=== PATIENT | male | born 1965 | race Caucasian/White ===

== ENCOUNTER 2018-01-30 08:08 | Emergency (ER) | payer BC ==
[~2018-01-30] VITALS: Ht 180.3 cm; Wt 87.9 kg
[~2018-01-30 08:08] MED LIST: CLXOPS3 OP; LRT5 PO
[2018-01-30 08:10] VITALS: Ht 180.3 cm; Wt 87.9 kg
[2018-01-30] MEDS ORDERED: KETOROLAC TROMETHAMINE 60 MG/2 ML VIAL IM STA (08:50)
[2018-01-30] MEDS ORDERED: DEXAMETHASONE **PF** INJ 10 MG/ML VIAL IM ONE (09:00)
--- NOTE | 2018-01-30 09:17 | DIAGNOSTIC IMAGING REPORT ---
LUMBAR SPINE 5 VIEWS HISTORY: LOW BACK PAIN INTO R LEG X 4 DAYS COMPARISON: None. FINDINGS: There is no fracture. No subluxation. The sacrum is intact. Mild osteoarthritis within the bilateral hips. Minimal dextroscoliosis of the lumbar spine. Mild facet osteoarthritis throughout the lumbar spine. Moderate to space narrowing at L3-L4. Mild disc space narrowing at L4-L5. There are endplate osteophytes from L3 through L5. IMPRESSION: No fracture or subluxation within the lumbar spine. Degenerative changes as described above. Electronically signed by: Chase Martinez M.D. 01/30/2018 9:16 AM Dictated Date/Time: 01/30/2018 9:14 AM
[2018-01-30] MEDS ORDERED: METH4PAK PO (09:49)
[2018-01-30] MEDS ORDERED: CYCL10TA6 PO (09:49)
[2018-01-30] MEDS ORDERED: ACYC400T PO (09:49)
[2018-01-30] MEDS ORDERED: OXYC1TAB3 PO (09:49)
--- NOTE | 2018-01-30 09:51 | EMERGENCY ROOM VISIT NOTE ---
ED Visit Note First contact with patient: 08:15 CHIEF COMPLAINT: Right low back pain radiating into the right leg 5 days HISTORY OF PRESENT ILLNESS: Patient is an otherwise healthy 52-year-old male who presents emergency department accompanied by his for evaluation of right low back pain radiating into the right leg. His symptoms started about 5 days ago. He has a history of mild chronic low back pain for which he has been seen by his chiropractor monthly for 20 years. 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 Otherwise he specifically denies any known injury to his back, no falls or direct trauma. He complains of a burning, sharp pain in the right low back that radiates into the right hip and groin and down his right leg. Pain is worse with walking and standing and weightbearing on the right. He has better with his weight on his left. He has tried taking ibuprofen with minimal relief. He denies any numbness, tingling or weakness into the lower extremities. No bowel or bladder incontinence. REVIEW OF SYSTEMS: Review of systems as per HPI. All other systems reviewed were negative. 10 systems reviewed. PMH: Electronic medical records are reviewed and summarized as above/below. See Problem List. SOCIAL HISTORY: Patient lives at home with his spouse. Employed. Non-smoker. PHYSICAL EXAM: Vital Signs: Reviewed Nurse's notes. CONSTITUTIONAL: Patient is an uncomfortable appearing 52-year-old white male who is awake and alert and seated upright on the gurney leaning on his left side. He has some mild discomfort with position changes. NECK: No bruits auscultated. Supple without lymphadenopathy. No thyromegaly. No meningeal signs. Full active range of motion without discomfort. CARDIOVASCULAR: Regular rate and rhythm, with normal S1 and S2, no murmur or gallop or rub is heard. No carotid bruits auscultated. No JVD. Peripheral pulses easily palpable. RESPIRATORY: Breath sounds equal and clear to auscultation without wheezes, rales, or rhonchi heard. Full and equal chest expansion without accessory muscle use or retractions. ABDOMEN: Bowel sounds are present. Abdomen is soft, nontender and nondistended. INTEGUMENTARY: No lesions or rash, normal skin turgor. LYMPH: No lymphadenopathy. SPINE: Examination of the patient's back does not demonstrate any ecchymosis, abrasions or outward signs of trauma. No erythema, increased warmth or induration. Patient has no midline discomfort to palpation over the lumbar spinous processes. He has tenderness in the right paraspinous muscle distribution, extending into the erector muscles over the posterior pelvis. There is no pain over the SI joint or the sciatic notch. He has increased pain with range of motion including rotation and flexion, however range of motion is full.. EXTREMITIES: Leg lengths are symmetrical. Negative logroll bilaterally. Normal strength including dorsi-flexion and plantar flexion of the great toes and ankles and flexion and extension of the knees and flexion of the hips. Positive right straight leg raise testing, negative left straight raise testing. Lower extremity DTRs are equal and symmetrical bilaterally. Distal pulses are easily palpable. Sensation light touch is intact over the lower extremities bilaterally. EMERGENCY DEPARTMENT COURSE: The patient was seen and assessed as above. His old records were reviewed. He was medicated with Toradol 60 mg and Decadron 10 mg IM. Lumbar spine x-rays were obtained. Mild degenerative changes were noted throughout the lower lumbar spine. X-ray findings were reviewed with the patient and his . Supportive care measures were discussed. He will be placed on a steroid taper, and use of Flexeril and oxycodone for pain management was discussed. He was educated on the worrisome signs or symptoms for which she should return to the emergency department and was otherwise advised to follow-up with his primary care provider for further care and evaluation, particularly if his symptoms do not improve. Patient rated his pain a 7/10 at discharge. MEDICAL DECISION MAKING: I do not suspect acute compression syndrome, cauda equina, diskitis, epidural abscess, hematoma or neurovascular compromise. Medication reconciliation: I attest that I have personally reviewed the patient' s current medication list. Blood pressure screening : Patient was found to have normal blood pressure on screening and does not require follow-up. Patient was reviewed in the [facility] Prescription Drug Monitoring Program, and there were no red flags noted. LUMBAR SPINE 5 VIEWS HISTORY: LOW BACK PAIN INTO R LEG X 4 DAYS COMPARISON: None. FINDINGS: There is no fracture. No subluxation. The sacrum is intact. Mild osteoarthritis within the bilateral hips. Minimal dextroscoliosis of the lumbar spine. Mild facet osteoarthritis throughout the lumbar spine. Moderate to space narrowing at L3-L4. Mild disc space narrowing at L4-L5. There are endplate osteophytes from L3 through L5. IMPRESSION: No fracture or subluxation within the lumbar spine. Degenerative changes as described above. Current/Historical Medications Scheduled Acyclovir (Acyclovir), 1 TAB PO TID Ciprofloxacin Hcl 0.3% Oph (Ciloxan Oph *), 2 DROPS OP Q2HR Hydrocodone/Acetaminophen 5MG/500MG (Vicodin 5MG/500MG), 1-2 TAB PO Q4-6HR Methylprednisolone (Medrol Dosepak), 0 PO DAILY Scheduled PRN Cyclobenzaprine Hcl (Flexeril), 10 MG PO TID PRN for Muscle Spasms Oxycodone Immediate Rel Tab (Roxicodone Ir), 1-2 TAB PO Q4H PRN for Severe Pain Miscellaneous Medications None (Patient States No Home Meds) Allergies Uncoded Allergies: N (Allergy, Unknown, 11/20/02) PCN (Allergy, Unknown, 11/20/02) PEANUTS (Allergy, Unknown, 11/20/02) Vital Signs Date Time Temp Pulse Resp B/P (MAP) Pulse Ox O2 Delivery O2 Flow Rate FiO2 01/30/18 09:58 36.8 61 18 125/84 100 01/30/18 08:10 36.8 65 18 131/76 99 Room Air Medications Administered Medications (Trade) Dose Ordered Sig/Son Route Start Time Stop Time Status Last Admin Dose Admin Ketorolac Tromethamine (Toradol Inj) 60 mg NOW STAT IM 01/30/18 08:50 01/30/18 08:52 DC 01/30/18 09:07 60 MG Dexamethasone Sodium Phosphate (Dexamethasone Inj Pf) 10 mg NOW ONCE IM 01/30/18 09:00 01/30/18 09:01 DC 01/30/18 09:07 10 MG Departure Information Impression Primary Impression: Low back pain radiating to right lower extremity Prescriptions Acyclovir (ACYCLOVIR) 400 Mg Tab 1 TAB PO TID for 7 Days, #21 TAB Prov: Krista Yarbrough,SHIVAM 01/30/18 Oxycodone Immediate Rel Tab (ROXICODONE IR) 5 Mg Tab 1-2 TAB PO Q4H Y for Severe Pain, #30 TAB For Initial Treatment Prov: Krista Yarbrough PA 01/30/18 Cyclobenzaprine Hcl (FLEXERIL) 10 Mg Tab 10 MG PO TID Y for Muscle Spasms, #30 TAB Prov: Krista Yarbrough PA 01/30/18 Methylprednisolone (MEDROL DOSEPAK) 4 Mg [place] 0 PO DAILY, #1 PKT ONCE DAILY DIRECTED. Prov: Krista Yarbrough PA 01/30/18 Referrals David Bridges M.D. (PCP) Patient Instructions My [facility] Additional Instructions Medrol Dosepak : Once daily until the prescription is finished. It is best to take this earlier in the day as some patients note occasional difficulty falling asleep when taken in the late evening. Oxycodone (OxyIR) 5mg: Take 1-2 pills every four hours for breakthrough pain. Avoid alcohol, operating machinery or dangerous equipment, working on ladders or roofs, DRIVING, or situations where being under the influence may be dangerous. It is recommended to use an [id number] stool softener such as Colace, 100mg twice daily while taking this medication to avoid constipation. Cyclobenzaprine (Flexeril) 10 mg: Take 1 pills 3 times daily as needed for muscle spasms.. Avoid alcohol, operating machinery or dangerous equipment, working on ladders or roofs, DRIVING, or situations where being under the influence may be dangerous. Ibuprofen(Motrin, Advil) may be used for fever or pain. Use 600mg every six hours as needed. Take with food. Avoid using more than 2400mg in a 24 hour period. Do not use 2400mg per day for more than three consecutive days without physician direction. Prolonged inappropriate use can lead to stomach upset or ulcers. This medication can be taken if you need to drive, work, or perform activities which may be dangerous when taking narcotic pain medication. (AND/OR) Acetaminophen(Tylenol) may be used for fever or pain. Use 1000mg every six hours as needed. Avoid using more than 3000mg in a 24 hour period. This medication can be taken if you need to drive, work, or perform activities which may be dangerous when taking narcotic pain medication. Rest and avoid heavy lifting until your symptoms resolve and then gradually return to full activity. A good rule of thumb is if it hurts your back to perform a certain activity, then it should be avoided until you are healthy again. A heating pad, warm compresses, or a hot shower may help with tight muscles and can be done several times a day as needed. Continue current medications. Return to the ER immediately for any numbness, tingling, severe pain, loss of control of your bowels or bladder, inability to walk, or as needed. Follow up with your primary care physician within 3-5 days for a recheck of your current condition.
[2018-01-30 09:58] VITALS: BP 125/84; PULSE 61; TEMP 36.8; O2SAT 100
== END 2018-01-30 09:59 | disposition home or self-care (01) ==
LOC: C.EDB 08:10 → C.EDA 09:59
DX: M54.5 Low back pain (principal); M79.604 Pain in right leg; G89.29 Other chronic pain; Z88.0 Allergy status to penicillin; Z91.010 Allergy to peanuts

== ENCOUNTER 2024-04-14 14:53 | Observation (INO) ==
[2024-04-14 16:12] LABS: Appearance Urine Clear (Clear); Bilirubin Urine Negative (Negative); Blood Urine Negative (Negative); Color Urine Yellow; Glucose Urine UA Negative (Negative); Ketones Urine Negative (Negative); Leukocyte Esterase Urine Negative (Negative); Nitrite Urine Negative (Negative); Protein Urine Negative (Negative); Specific Gravity Urine 1.007 (1.000-1.030); Urobilinogen Urine Negative (Negative)
--- NOTE | 2024-04-14 16:18 | Emergency Department Note ---
History of Present Illness General Chief complaint: Back Injury/Pain Stated complaint: LOW BACK PAIN Time Seen by Provider: 04/14/24 16:03 History of Present Illness Maximum Pain Intensity: 10 NAME: CHANDNI BILLINGS AGE: 58 SEX: M : 1965 ARRIVES VIA: Walk-In INFORMANT: Patient ED PROVIDER(S): JESSE Morelos, Mason Alatorre MD The patient is a 58-year-old male who arrives to the emergency department for evaluation of pain in his right back starting last Sunday. He reports he was evaluated here in the emergency department, had x-ray imaging performed. He reports he was provided p.o. steroids, oral oxycodone, as well as muscle relaxers. He reports since that time he has been unable to stand. He reports the pain radiates from his right back down into his right Moore, denies any lateral right leg, to the ankle. He reports slight weakness in the right leg, however he believes this is from pain. He denies any numbness or tingling, loss of bowel or bladder.. Home Medications Medication Instructions Recorded Confirmed Type cyclobenzaprine 5 mg tablet 5 mg PO BID PRN muscle spasm #14 04/15/24 Rx tabs prednisone 20 mg tablet 60 mg (3 x 20 mg) PO DAILY #12 tabs 04/15/24 Rx Allergies Allergy/AdvReac Type Severity Reaction Status Date / Time peanut Allergy Unknown Unknown Verified 04/14/24 22:19 Penicillins Allergy Unknown Unknown Verified 04/14/24 22:19 Past Med/Surg History Problem List (Updated 04/17/24 @ 08:20 by JESSE Christiansen) Ambulatory dysfunction (Acute) Intractable low back pain (Acute) Sciatica (Acute) Lumbar back pain (Acute) No known health problems Social History Smoking Status: Never smoker Second Hand Exposure: No; Do You Dip or Chew Tobacco: No; Tobacco Cessation Education Requested by Patient: No Hx Alcohol Use: Yes Alcohol type: beer Hx Substance Use: No Preferred Language: Turkish Communication Ability: Effective Research Environmental Scientist Required: No Beliefs That Will Affect Care: None Current Living Situation: Spouse Other Information That Helps Us Care for You: No Feels Safe at Home: Yes Safety Concerns: Feels Safe At This Time Assistive Devices: Glasses Physical Exam Vital Signs Vital Signs - 24 hr 04/14/24 15:15 Temperature 36.8 C Temperature Source Temporal Artery Scan Pulse Rate 74 Pulse Rhythm Regular Respiratory Rate 20 Respiratory Effort / Characteristics Non-Labored Spontaneous Respiratory Depth Normal Blood Pressure 135/90 Blood Pressure Mean 105 Pulse Oximetry 97 Oxygen Delivery Method Room Air Sepsis Recent Fever Within 48 Hours No Sepsis New/Unexplained Change in Mental Status No Sepsis Action Taken by Nursing No Action Required VITALS: Vitals are noted on the nurse's note and reviewed by myself. Vital signs stable. GENERAL: 58-year-old male, in no acute distress, nondiaphoretic, well-developed well-nourished. SKIN: The skin was without rashes, erythema, edema, or bruising. HEAD: Normocephalic atraumatic. NECK: Supple without nuchal rigidity. No lymphadenopathy. No thyromegaly. Cervical spine is nontender. No JVD. HEART: Regular rate and rhythm without murmurs gallops or rubs. LUNGS: Clear to auscultation bilaterally without wheezes, rales or rhonchi. No retractions or accessory muscle use. ABDOMEN: Positive bowel sounds x 4. Soft, nontender, without masses or organomegaly. Rodriguez sign negative. No guarding or rebound tenderness. MUSCULOSKELETAL: No muscle atrophy, erythema, or edema noted. Right lumbar paraspinal region tenderness to palpation, limited range of motion, right hip due to pain, positive straight leg raise, strength 5/5, bilateral sensation intact. NEURO: Patient was alert and oriented to person place and time. No focal neurological deficits. Course Administered Medications Discontinued Medications Acetaminophen (Acetaminophen 500 Mg Tab) 1,000 mg PO NOW STA Stop: 04/14/24 18:15 Last Admin: 04/14/24 18:23 Dose: 1,000 mg Documented By: WINIFRED Acetaminophen (Acetaminophen 500 Mg Tab) 1,000 mg PO Q8H [facility] Stop: 05/15/24 01:59 Last Admin: 04/15/24 10:08 Dose: 1,000 mg Documented By: Admin: 04/15/24 03:19 Dose: 1,000 mg Documented By: JESSICA Ketorolac Tromethamine (Ketorolac Tromethamine 15 Mg/Ml Vial) 15 mg IV NOW ONE Stop: 04/14/24 18:15 Last Admin: 04/14/24 18:23 Dose: 15 mg Documented By: WINIFRED Ketorolac Tromethamine (Ketorolac Tromethamine 15 Mg/Ml Vial) 15 mg IV NOW ONE Stop: 04/14/24 20:17 Last Admin: 04/15/24 05:13 Dose: Not Given Documented By: JESSICA Ketorolac Tromethamine (Ketorolac Tromethamine 15 Mg/Ml Vial) 15 mg IV Q6H PRN PRN Reason: Pain Stop: 04/20/24 01:59 Last Admin: 04/15/24 05:33 Dose: 15 mg Documented By: JESSICA Lidocaine (Lidocaine 5% 1 Patch) 1 patch TD NOW STA Stop: 04/14/24 18:15 Last Admin: 04/14/24 18:23 Dose: 1 patch Documented By: WINIFRED Joseph (Remove Lidoderm Patch) 1 each N/A DAILY@2100 [facility] Stop: 05/14/24 20:59 Last Admin: 04/14/24 20:41 Dose: Not Given Documented By: LYNDSAY Joseph (Remove Lidoderm Patch) 1 each N/A TODAY@0630 ONE Stop: 04/15/24 06:31 Last Admin: 04/15/24 05:31 Dose: 1 each Documented By: JESSICA Oxycodone HCl (Oxycodone Hcl Ir 5 Mg Tab (Immediate Release)) 5 mg PO NOW STA Stop: 04/14/24 19:13 Last Admin: 04/14/24 19:23 Dose: 5 mg Documented By: LYNDSAY Prednisone (Prednisone 20 Mg Tab) 60 mg PO DAILY [facility] Stop: 04/16/24 09:01 Last Admin: 04/15/24 07:40 Dose: 60 mg Documented By: Admin: 04/14/24 22:34 Dose: 60 mg Documented By: JESSICA Medical Decision Making Differential Diagnosis Musculoskeletal, disc herniation, fracture, metastatic disease, cord compression, discitis, sciatica, cauda equina, infection, aortic disease, renal colic, gastrointestinal, as well as other pathologies. Medical Records Attestation: I reviewed the patient's medical records. Home Medications Current Medication List: was personally reviewed by me Laboratory Data Attestation: I reviewed the patient's lab results. No leukocytosis, stable hemoglobin and hematocrit, no electrolyte abnormalities, urinalysis negative for infection. 04/14/24 15:19 04/14/24 15:19 Lab Results 04/14/24 04/14/24 Range/Units 15:19 15:58 WBC 10.76 (4.8-10.8) K/ul RBC 5.51 (4.70-6.10) M/uL Hgb 16.3 (14.0-18.0) g/dl Hct 49.3 (42.0-52.0) % MCV 89.5 (80.0-100.0) fL MCH 29.6 (25.0-34.0) pg MCHC 33.1 (32.0-36.0) g/dL RDW Std Deviation 42.5 (36.4-46.3) fL RDW Coeff of Vivian 13.0 (11.5-14.5) % Plt Count 270 (130-400) K/uL MPV 9.4 (9.4-12.4) fL Immature Gran % (Auto) 0.6 % Neut % (Auto) 72.0 % Lymph % (Auto) 17.5 % [place] % (Auto) 8.6 % Eos % (Auto) 0.8 % Baso % (Auto) 0.5 % Neut # (Auto) 7.75 H (1.40-6.50) K/uL Lymph # (Auto) 1.88 (1.20-3.40) K/uL [place] # (Auto) 0.93 H (0.11-0.59) K/uL Eos # (Auto) 0.09 (0.00-0.50) K/uL Baso # (Auto) 0.05 (0.00-0.20) K/uL Immature Gran # (Auto) 0.06 (0.01-0.20) K/uL Sodium 138 (136-145) mmol/L Potassium 4.4 (3.5-5.1) mmol/L Chloride 100 (98-107) mmol/L Carbon Dioxide 30 (21-32) mmol/L Anion Gap 8 (3-11) BUN 16 (6-23) mg/dl Creatinine 1.07 (0.6-1.4) mg/dl Est Cr Clr Drug Dosing Not Reportable Est GFR ( Amer) 88.2 ml/min Est GFR (Non-Af Amer) 76.1 ml/min BUN/Creatinine Ratio 15.0 (10-20) Glucose 85 (70-99(Fasting)) mg/dl Calcium 9.9 (8.6-10.3) mg/dl Total Bilirubin 0.5 (0.2-1.0) mg/dl AST 21 (13-39) U/L ALT 27 (7-52) U/L Alkaline Phosphatase 48 (34-104) U/L Total Protein 7.8 (6.0-8.3) gm/dl Albumin 4.6 (3.4-5.0) gm/dl Globulin 3.2 (2.5-4.0) gm/dl Albumin/Globulin Ratio 1.4 (0.9-2) Urine Color Yellow Urine Appearance Clear (Clear) Urine pH 6.0 (4.5-7.5) Ur Specific [place] 1.007 (1.000-1.030) Urine Protein Negative (Negative) Urine Glucose (UA) Negative (Negative) Urine Ketones Negative (Negative) Urine Blood Negative (Negative) Urine Nitrite Negative (Negative) Urine Bilirubin Negative (Negative) Urine Urobilinogen Negative (Negative) Ur Leukocyte Esterase Negative (Negative) Blood Pressure Blood Pressure Findings: Normal blood pressure MDM Narrative Patient is a pleasant well-appearing 58-year-old male who arrives to the emergency department for evaluation of the above-stated complaint. Upon examination the patient was in the ED waiting area, in a wheelchair due to high census. He was seen in the previous week, for similar symptoms and provided oral oxycodone, prednisone, and muscle relaxers on an outpatient basis. He reports over the last week the pain has increased significantly, and he is unable to ambulate at this time. CT imaging of the lumbar spine was obtained which showed multilevel degenerative changes as described above most pronounced at the L3-L4 level. A saline lock was established, CBC, CMP, urinalysis were obtained, which were all unremarkable. The patient is showing no signs of cauda equina therefore no MRI imaging was obtained. The patient's pain was controlled in the emergency department with medication. I spoke with the admitting provider who agreed to accept the patient for ambulatory dysfunction. Please refer to their documentation for further patient care. Impression & Plan Sciatica, Lumbar back pain, Intractable low back pain, Ambulatory dysfunction Discharge Plan Visit Data Chief Complaint: Back Injury/Pain Stated Complaint: LOW BACK PAIN ED Provider: Mason Alatorre ED Midlevel Provider: Khushboo Rodarte Discharge Problem: Sciatica, Lumbar back pain, Intractable low back pain, Ambulatory dysfunction Patient Disposition: Admitted As Inpatient Discharge Instructions Interventions: ED Discharge Assessment Last Done: 04/14/24 21:27 Discharge Problem: Sciatica Qualifiers: Laterality: right Qualified Code(s): M54.31 - Sciatica, right side
[2024-04-14 16:28] LABS: Basophils # (auto) 0.05 K/uL (0.00-0.20); Basophils % (auto) 0.5 %; Eosinophils # (auto) 0.09 K/uL (0.00-0.50); Eosinophils % (auto) 0.8 %; Hematocrit (blood only) 49.3 % (42.0-52.0); Hemoglobin 16.3 g/dl (14.0-18.0); Immature Granulocytes # (auto) 0.06 K/uL (0.01-0.20); Immature Granulocytes % (auto) 0.6 %; Lymphocytes # (auto) 1.88 K/uL (1.20-3.40); Lymphocytes % (auto) 17.5 %; Mean Corpuscular Hemoglobin 29.6 pg (25.0-34.0); Mean Corpuscular Hgb Conc 33.1 g/dL (32.0-36.0); Mean Corpuscular Volume 89.5 fL (80.0-100.0); Mean Platelet Volume 9.4 fL (9.4-12.4); Monocytes # (auto) 0.93 K/uL (0.11-0.59); Monocytes % (auto) 8.6 %; Neutrophils # (auto) 7.75 K/uL (1.40-6.50); Platelet Count 270 K/uL (130-400); RDW Standard Deviation 42.5 fL (36.4-46.3); Red Blood Count 5.51 M/uL (4.70-6.10); White Blood Count 10.76 K/ul (4.8-10.8)
[2024-04-14 16:55] LABS: Alanine Aminotransferase 27 U/L (7-52); Albumin Globulin Ratio 1.4 (0.9-2); Albumin Level 4.6 gm/dl (3.4-5.0); Alkaline Phosphatase 48 U/L (34-104); Anion Gap 8 (3-11); Aspartate Aminotransferase 21 U/L (13-39); Bilirubin,Total 0.5 mg/dl (0.2-1.0); Blood Urea Nitrogen 16 mg/dl (6-23); Calcium 9.9 mg/dl (8.6-10.3); Carbon Dioxide 30 mmol/L (21-32); Chloride 100 mmol/L (98-107); Est GFR (African American) 88.2 ml/min; Est GFR (Non-African American) 76.1 ml/min; Globulin 3.2 gm/dl (2.5-4.0); Glucose 85 mg/dl (70-99(Fasting)); Potassium 4.4 mmol/L (3.5-5.1); Sodium 138 mmol/L (136-145); Total Protein 7.8 gm/dl (6.0-8.3)
--- NOTE | 2024-04-14 18:11 | CT Scan Report ---
LUMBAR SPINE CT CT DOSE: 1036.74 mGy.cm HISTORY: Worsening low back pain. TECHNIQUE: Multiaxial CT images of the lumbar spine were performed and reformatted in the sagittal an d coronal plane without the use of contrast. A dose lowering technique was utilized adhering to the principles of ALARA. COMPARISON: None. FINDINGS: No fracture or subluxation within the lumbar spine. The visualized sacrum is intact. Modera te to severe disc space narrowing at L3-L4. Moderate moderate disc space narrowing at L4-L5. Mild dis c space narrowing at L1-L2 and L5-S1. There are small endplate osteophytes seen throughout the lumbar spine. [id number] facet degenerative changes most pronounced within the lower lumbar spine. Pa ravertebral soft tissues are unremarkable. Mild central canal narrowing at L1-L2, L2-L3, and L4-L5 du e to a broad-based posterior disc bulge and ligamentum flavum/facet hypertrophy. No significant centr al canal narrowing at the L5-S1 level. Moderate right and mild left neural foraminal narrowing at L4- L5 and L5-S1 due to the disc bulges and facet hypertrophy. There is mild right and moderate left neur al foraminal narrowing at L3-L4. There is a broad-based posterior disc osteophyte complex at L3-L4 re sulting in moderate central canal narrowing. IMPRESSION: 1. No fracture or subluxation within the lumbar spine. 2. Multilevel degenerative changes as described above most pronounced at the L3-L4 level. ACT 112: Negative or not required by law. Electronically signed by: Chase Martinez M.D. 04/14/2024 6:09 PM
[2024-04-14] MEDS: ACETAMINOPHEN 500 MG TAB PO STA (18:23)
[2024-04-14] MEDS: LIDOCAINE 5% 1 PATCH TD STA (18:23)
[2024-04-14] MEDS: KETOROLAC TROMETHAMINE 15 MG/ML VIAL IV ONE (18:23)
[2024-04-14] MEDS: oxyCODONE HCL IR 5 MG TAB (IMMEDIATE RELEASE) PO STA (19:23)
--- NOTE | 2024-04-14 19:29 | History & Physical Report ---
Date of Service April 14, 2024 Assessment & Plan (1) Intractable low back pain: (2) Sciatica: Plan Shadi is a 58M with PMH of sciatica and lumbar back pain who presents for intractable LBP. Intractable LBP w/ L3-L4 Dermatome Sciatica - Uncontrolled LBP w/o cauda equina, loss of sensation, or LE weakness Presented 04/07 for same symptoms, Failed outpatient trial of Cyclobenzaprine, Methylpred, and Oxycodone 5 mg Prior episode in 2018 that resolved w/ Toradol x 2, muscle relaxants, and steroids - XR 04/07: Moderate disc space narrowing at L3-L4 with endplate osteophytes. Mild disc space narrowing at L4-L5 and L5-S1. - CT L Spine 04/14: 1. No fracture or subluxation within the lumbar spine. 2. Multilevel degenerative changes as described above most pronounced at the L3-L4 level. - Pain Management - Ordered KPad - Continue Lidocaine Patch - Ordered Tylenol scheduled - Ordered Toradol 15 mg IV Q6h PRN Patient received 15 mg IV dose in ED w/o benefit, additional 15 mg IV added for total 30 mg dose - Continue Cyclobenzaprine 5 mg BID - Will start Prednisone 60 mg PO daily for 5 days as recommended for lumbosacral radiculopathy - Will hold additional opioids at this time as patient received no benefit as outpatient and responded well to NSAIDs during prior episodes - PT/OT ordered - Discussed Osteopathic Manipulative Treatment as outpatient, contact information provided - No indication for orthopedic surgery consultation at this time - Would consider if patient not responding to conservative measures, escalation to opioids, and physical therapy inpatinet Ambulatory Dysfunction - Secondary to severe pain - Pain management as above - PT/OT ordered Chronic Conditions: - None Code: DNR/DNI Diet: Regular Dispo: Med/Surg History of Present Illness Chief Complaint: Back Pain Primary Care Provider: NO PCP Shadi is a 58M w/o significant PMH who presents for intractable LBP. HPI: Patient was seen 04/07 for acute onset of LBP w/ R sciatica. Notes that he awakened 04/06 with severe LBP and was barely able to stand up from bed. The happened to him previously in 2018. He was treated with Toradol x 2, muscle relaxants, and steroids and symptoms completely resolved. Patient received oxycodone, steroids, and muscle relaxants 04/07 but they were not successful outpatient. Patient notes that his symptoms are worst with ambulation, the pain is so severe he is unable to walk more than 10 steps. His symptoms are lessened by laying on his right side and flexion at the hips. Patient denies any recent falls or injury to his back. His pain is localized to his lumbar spine, right buttock, right lateral thigh, right posterior knee, and right posterior calf. Patient denies loss of leg strength, saddle anesthesia, or loss of bowel/bladder control. Allergies Allergy/AdvReac Type Severity Reaction Status Date / Time peanut Allergy Unknown Unknown Verified 04/14/24 22:19 Penicillins Allergy Unknown Unknown Verified 04/14/24 22:19 Home Medications Medication Instructions Recorded Confirmed Type cyclobenzaprine 5 mg tablet 5 mg PO BID PRN muscle spasm #14 04/15/24 Rx tabs prednisone 20 mg tablet 60 mg (3 x 20 mg) PO DAILY #12 tabs 04/15/24 Rx Past Med/Surg History Problem List (Updated 04/14/24 @ 19:31 by Allison Heart DO) Intractable low back pain Sciatica (Acute) Lumbar back pain (Acute) No known health problems Social History Smoking Status: Never smoker Second Hand Exposure: No; Do You Dip or Chew Tobacco: No; Tobacco Cessation Education Requested by Patient: No Hx Alcohol Use: Yes Alcohol type: beer Hx Substance Use: No Preferred Language: Cameroonian Communication Ability: Effective [employer]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 Beliefs That Will Affect Care: None Current Living Situation: Spouse Other Information That Helps Us Care for You: No Feels Safe at Home: Yes Safety Concerns: Feels Safe At This Time Assistive Devices: Glasses Physical Exam Physical Exam: Gen: NAD, alert, interactive HEENT: Supple, no LAD, MMM Resp:Non-labored, no wheezing/rhonchi/rales, CTAB CV:RRR, normal S1/S2, no M/R/G Abd: Soft, non-distended, no TTP, normoactive bowels, no masses Extr: 2+ dp bilaterally, no edema Back: Bony TTP of low lumbar spine/sacrum, right paraspinal hypertonicity w/ muscular spasm, straight leg raise positive on right, sensation intact and strength 5/5 in bilateral LE. No focal neurologic deficits, no saddle anesthesia. Skin: No rashes lesions or erythema Results & Data Results & Data Vital Signs (Past 12 Hours) Vital Signs Temp Pulse Pulse Resp BP BP Pulse Ox 04/14/24 18:48 70 04/14/24 18:20 58 L 20 153/92 H 98 04/14/24 15:15 36.8 C 74 20 135/90 97 O2 Del Method 04/14/24 18:48 04/14/24 18:20 Room Air 04/14/24 15:15 Room Air Supervising Physician Co-Signing Physician Notes Attending addendum: I have physically seen this patient, have supervised the medical residents activities, and agree with the H&P unless as otherwise noted. Assessment and Plan: Intractable low back pain/multilevel L DDD- CT lumbar spine shows multilevel degenerative disc disease most pronounced at L 3-L4 Pain not controlled by ED interventions K-pad Lidoderm patch Acetaminophen 650 mg by mouth every 6 hours ATC Toradol 15 mg IV every 6 hours as needed for moderate pain Cyclobenzaprine 5 mg p.o. twice daily Start course of prednisone 6 mg p.o. daily as noted PT/OT consult Resident Activity Tracking Resident Involvement: Resident Care Provided Care Provided: Adult Hospital Medicine (2) Sciatica Laterality: right Qualified Code(s): M54.31 - Sciatica, right side
[2024-04-14] MEDS ORDERED: POLYETHYLENE (MIRALAX) 17 GM PACK PO PRN (22:15)
[2024-04-14] MEDS ORDERED: MELATONIN 3 MG TAB PO PRN (22:15)
[2024-04-14] MEDS ORDERED: ONDANSETRON INJ 2 MG/ML 2 ML VIAL IV PRN (22:15)
[2024-04-14] MEDS ORDERED: CYCLOBENZAPRINE HCL 5 MG TAB PO PRN (22:15)
[2024-04-14 22:18] VITALS: RESP 16
[2024-04-14] MEDS: predniSONE 20 MG TAB PO SCH (22:34)
[2024-04-15] MEDS: ACETAMINOPHEN 500 MG TAB PO SCH (03:19)
[2024-04-15] MEDS: KETOROLAC TROMETHAMINE 15 MG/ML VIAL IV ONE (05:13)
[2024-04-15] MEDS: KETOROLAC TROMETHAMINE 15 MG/ML VIAL IV PRN (05:33)
--- NOTE | 2024-04-15 07:00 | Hospitalist Progress Note ---
Date of Service April 15, 2024 Assessment & Plan (1) Intractable low back pain: (2) Sciatica: Plan Shadi is a 58M with PMH of sciatica and lumbar back pain who presents for intractable LBP. Intractable LBP w/ L3-L4 Dermatome Sciatica - Uncontrolled LBP w/o cauda equina, loss of sensation, or LE weakness Presented 04/07 for same symptoms, Failed outpatient trial of Cyclobenzaprine, Methylpred, and Oxycodone 5 mg Prior episode in 2018 that resolved w/ Toradol x 2, muscle relaxants, and steroids - XR 04/07: Moderate disc space narrowing at L3-L4 with endplate osteophytes. Mild disc space narrowing at L4-L5 and L5-S1. - CT L Spine 04/14: 1. No fracture or subluxation within the lumbar spine. 2. Multilevel degenerative changes as described above most pronounced at the L3-L4 level. - Pain Management - Ordered KPad - Tylenol scheduled - Toradol 15 mg IV Q6h PRN - Continue Cyclobenzaprine 5 mg BID - Continue Prednisone 60 mg PO daily for 5 days as recommended for lumbosacral radiculopathy - Will hold additional opioids at this time as patient received no benefit as outpatient and responded well to NSAIDs during prior episodes - No indication for orthopedic surgery consultation at this time - Would consider if patient not responding to conservative measures, escalation to opioids, and physical therapy inpatient Ambulatory Dysfunction - Secondary to severe pain, pain management as above Code: DNR/DNI Diet: Regular Dispo: Med/Surg Admission and Anticipated Discharge Date Admission Date: April 14, 2024 Emilie Hsu is doing better today. His back pain has improved but is aggravated with movement. Reports that the pain is in his lumbar back and radiates around his buttocks and into the front of his thighs. No bowel or bladder incontinence. No fever or chills. No chest pain or shortness of breath. Review of Systems Review of Systems: See HPI Physical Exam Physical Exam: Gen: NAD, alert, interactive HEENT: Supple Resp:Non-labored, no wheezing/rhonchi/rales, clear to auscultation bilaterally CV:Normal rate and rythm, normal S1/S2, no murmurs/rubs/gallops Abd: Soft, non-distended, not tender to palpation, normoactive bowels Extr: no edema Back: Bony tender to palpation of low lumbar spine/sacrum, sensation intact and strength 5/5 in bilateral LE. No focal neurologic deficits. Skin: No rashes lesions or erythema Results & Data Results & Data Vital Signs (Past 12 Hours) Vital Signs Temp Pulse Resp BP Pulse Ox O2 Del Method 04/14/24 22:17 36.4 C L 67 16 120/76 98 Room Air 04/14/24 19:00 72 17 173/99 H 99 Room Air Resident Activity Tracking Resident Involvement: Resident Care Provided Care Provided: Adult Hospital Medicine (2) Sciatica Laterality: right Qualified Code(s): M54.31 - Sciatica, right side
[2024-04-15 14:01] VITALS: BP 126/69; PULSE 81; TEMP 97.7; O2SAT 96
--- NOTE | 2024-04-15 14:26 | Discharge Summary ---
Date of Service April 15, 2024 Admission HPI Per Admitting Provider Shadi is a 58M w/o significant PMH who presents for intractable LBP. HPI: Patient was seen 04/07 for acute onset of LBP w/ R sciatica. Notes that he awakened 04/06 with severe LBP and was barely able to stand up from bed. The happened to him previously in 2018. He was treated with Toradol x 2, muscle relaxants, and steroids and symptoms completely resolved. Patient received oxycodone, steroids, and muscle relaxants 04/07 but they were not successful outpatient. Patient notes that his symptoms are worst with ambulation, the pain is so severe he is unable to walk more than 10 steps. His symptoms are lessened by laying on his right side and flexion at the hips. Patient denies any recent falls or injury to his back. His pain is localized to his lumbar spine, right buttock, right lateral thigh, right posterior knee, and right posterior calf. Patient denies loss of leg strength, saddle anesthesia, or loss of bowel/bladder control. Admission Exam Per Admitting Provider Gen: NAD, alert, interactive HEENT: Supple, no LAD, MMM Resp:Non-labored, no wheezing/rhonchi/rales, CTAB CV:RRR, normal S1/S2, no M/R/G Abd: Soft, non-distended, no TTP, normoactive bowels, no masses Extr: 2+ dp bilaterally, no edema Back: Bony TTP of low lumbar spine/sacrum, right paraspinal hypertonicity w/ muscular spasm, straight leg raise positive on right, sensation intact and strength 5/5 in bilateral LE. No focal neurologic deficits, no saddle anesthesia. Skin: No rashes lesions or erythema Principal Diagnosis Low back pain Discharge Exam General: NAD, alert, interactive HEENT: Supple, no LAD Resp:Non-labored, no wheezing/rhonchi/rales, CTAB CV:Normal Rate and Rhythm, normal S1/S2, no murmurs/rubs/gallops Abd: Soft, non-distended, no TTP, normoactive bowels, no masses Extr: no edema Back: Bony tender to palpation of low lumbar spine/sacrum. No focal neurologic deficits, no saddle anesthesia. Skin: No rashes lesions or erythema Discharge Data Allergies Allergy/AdvReac Type Severity Reaction Status Date / Time peanut Allergy Unknown Unknown Verified 04/14/24 22:19 Penicillins Allergy Unknown Unknown Verified 04/14/24 22:19 Consultations 04/14/24 19:20 ED Decision to Admit Stat Ordered Studies 04/14/24 16:36 CT lumbar spine wo con Stat LUMBAR SPINE CT CT DOSE: 1036.74 mGy.cm HISTORY: Worsening low back pain. TECHNIQUE: Multiaxial CT images of the lumbar spine were performed and reformatted in the sagittal and coronal plane without the use of contrast. A dose lowering technique was utilized adhering to the principles of ALARA. COMPARISON: None. FINDINGS: No fracture or subluxation within the lumbar spine. The visualized sacrum is intact. Moderate to severe disc space narrowing at L3-L4. Moderate moderate disc space narrowing at L4-L5. Mild disc space narrowing at L1-L2 and L5-S1. There are small endplate osteophytes seen throughout the lumbar spine. [id number] facet degenerative changes most pronounced within the lower lumbar spine. Paravertebral soft tissues are unremarkable. Mild central canal narrowing at L1-L2, L2-L3, and L4-L5 due to a broad-based posterior disc bulge and ligamentum flavum/facet hypertrophy. No significant central canal narrowing at the L5-S1 level. Moderate right and mild left neural foraminal narrowing at L4-L5 and L5-S1 due to the disc bulges and facet hypertrophy. There is mild right and moderate left neural foraminal narrowing at L3-L4. There is a broad- based posterior disc osteophyte complex at L3-L4 resulting in moderate central canal narrowing. IMPRESSION: 1. No fracture or subluxation within the lumbar spine. 2. Multilevel degenerative changes as described above most pronounced at the L3- L4 level. ACT 112: Negative or not required by law. Electronically signed by: Chase Martinez M.D. 04/14/2024 6:09 PM Hospital Course (1) Intractable low back pain: (2) Sciatica: Plan Intractable Lower Back Pain w/ L3-L4 Dermatome Sciatica // Chronic, improving - Uncontrolled lower back pain with failed outpatient trial of cyclobenzaprine, methylprednisolone, and Oxycodone [address] of lumbar spine significant for degenerative changes L3-S1, most pronounced at L3-L4. Pain likely secondary to degenerative changes and sciatic nerve impingement. - No loss of sensation or lower extremity weakness. Afebrile. - For pain control, use of OTC Lidocaine patch, Tylenol, ibuprofen as needed. Prescribed Cyclobenzaprine 5 mg PRN. Prednisone 60 mg PO daily for 4 days post- discharge. - Follow up with PCP. OMM treatments discussed with patient and he would be interested in pursuing this further. Ambulatory Dysfunction // Improving - Secondary to severe pain, pain management as above - Physical therapy recommended outpatient PT once pain is better controlled. Total Time Total Time Spent Total Time Spent (In Minutes): see attending attestation Discharge Plan Discharge Items Patient Disposition: Home - Self-Care Reason For Visit: INTRACTABLE LBP Discharge Diagnosis: Lower back pain Activity: Per Instructions section Lifting: Gradually increase as tolerated Non-emergency contact: Primary Care Provider Call non-emergency contact if: you have any medication questions, your pain is unusual for you and your temperature is above 101 Follow-up/Referrals: Sydnie Ghosh MD [Resident] - (PLEASE CALL TO MAKE A HOSPITAL FOLLOW UP APPOINTMENT IN 7-10 DAYS.) PCP,NO [Primary Care Provider] - Diet: Regular Addtl Attending Provider Instructions: You came into the hospital for lower back pain. We were able to control your pain with a combination of medications. We started a burst of steroids - you will take 60 mg (3 tabs) daily for 5 days total. We also started you on cyclobenzaprine 5 mg twice daily as needed for muscle spasms. For topical relief we started a lidocaine patch. You can get those over the counter to use as needed. You can also try things like BioFreeze, IcyHot, or Voltaren gel for topical pain relief. I would recommend taking 1000 mg of Tylenol every 8 hours. You can take 800 mg Ibuprofen every 8 hours as well for pain not controlled by Tylenol. You did not have much relief with oxycodone, but if it does help you can take that for severe pain. Prescriptions sent: prednisone 60 mg daily for 4 more days cyclobenzaprine 5 mg every 12 hours as needed for muscle spasms We recommend establishing care with a primary care for close follow up. The number for the [facility] - [phone]. Pending Studies at Discharge: No Stand-Alone Forms: My [facility] [employer], Work/School Release, Smoking Cessation Medications and DC Order Prescriptions: New prednisone 20 mg tablet 60 mg PO DAILY Qty: 12 0RF Rx Instructions: take 60 mg (3 tabs) daily for the next 4 days cyclobenzaprine 5 mg Tablet 5 mg PO BID PRN (Reason: muscle spasm) Qty: 14 0RF Discontinued methylprednisolone [Methylpred DP] 4 mg tablets,dose pack 4 mg PO DAILY Qty: 21 0RF Rx Instructions: Medrol Dosepak oxycodone 5 mg capsule 5 mg PO Q12H PRN (Reason: pain (scale score 7-10)) Qty: 10 0RF cyclobenzaprine 5 mg tablet 5 mg PO BID PRN (Reason: muscle spasm) Qty: 14 0RF Discharge Orders: Discharge Order (Routine); Ordered 04/15/24 Ordered By: Leigh Cuevas Admission Data Admit Date/Time: 04/14/24 20:26 Attending Provider: Bismark Sprague Admit Provider: Allison Heart Primary Care Provider: PCP,NO Other Providers: Rickey Wright Other Interventions: Discharge Summary Assessment (RN) Last Done: 04/15/24 14:46 Supervising Physician Co-Signing Physician Notes Attending attestation Pt seen and examined in concert with [place]. Dr. Cabezas. In agreement with the documented findings as noted in the resident documentation with any exceptions or additions as noted here. On re-evaluation in afternoon, continued improvement in lower back pain and radicular symptoms at rest and with brief activity. Tolerated PT well and willing to engage with same in outpatient setting. On examination, S1/S2 nl RRR no MCG. CTAB. Abd NT/ND BS+ve. Mild TTP of the paraspinal area of the right lumbar region without reproduction of sx, negative modified straight leg raise Intractable lower back pain w/ radicular symptoms - complete prednisone burst as noted, continue supportive pain control with OTC medications incl' lidocaine patch, APAP, ibuprofen. Precautions re: worsening/changing symptoms reviewed in detail. Has f/u with ortho spine on Sunday in [place]. Strongly encourage PT in outpatient setting. Recommended to re-establish care (following Dr. Bridges's custodial) with Dr. Thurston as she is familiar with his case. Else see resident documentation as noted. Total attending physician time spent with this patient's care on the day of discharge: 35 minutes.
--- NOTE | 2024-04-15 19:52 | Billing Data ---
Date of Service April 15, 2024 Coding Level of Care Code 40932 INT INP/OBS CARE
== END 2024-04-15 16:30 | disposition home or self-care (01) ==
LOC: ED 14:53 → 3N 14:53 → SUATTDRO 20:26 → 3N 21:27
DX: M54.41 Lumbago with sciatica, right side; Z88.0 Allergy status to penicillin; Z66 Do not resuscitate